=== PATIENT | female | born 2000 | race Caucasian/White ===

== ENCOUNTER 2018-01-11 14:40 | Emergency (ER) | payer OTHER ==
[~2018-01-11] VITALS: Ht 162.6 cm; Wt 95.7 kg
[2018-01-11 15:21] LABS: BASOPHIL % 0.2 % (0-2); PLATELET COUNT 204 x10^3mcL (130-400)
[2018-01-11 15:25] LABS: CALCIUM 8.4 mg/dL (8.5-10.1); CARBON DIOXIDE 22.5 mmol/L (21-32); CHLORIDE SERUM 103 mmol/L (98-107); CREATININE SERUM 0.6 mg/dL (0.6-1.0); GFR1 > 60 mL/min; GLUCOSE SERUM 132 mg/dL (74-106); POTASSIUM SERUM 3.6 mmol/L (3.5-5.1); SODIUM SERUM 135 mmol/L (136-145)
[2018-01-11 15:26] LABS: RED CELL DISTRIBUTION WIDTH 14.8 % (11.5-14.5)
[2018-01-11 15:30] LABS: ALKALINE PHOSPHATASE 108 U/L (46-116); ALT/SGPT 19 U/L (14-59); AST/SGOT 18 U/L (15-37); BILIRUBIN TOTAL 0.2 mg/dL (0.20-1.00); TOTAL PROTEIN, SERUM 6.9 g/dL (6.4-8.2)
[2018-01-11 15:31] LABS: ALBUMIN 2.3 g/dL (3.4-5.0)
[2018-01-11 16:42] LABS: FREE T4 1.09 ng/dL (0.76-1.46); FREE THYROXINE INDEX 3.8 ug/dL (1.4-4.5); T4(THYROXINE) 14.8 ug/dL (4.7-13.3)
[2018-01-11 16:43] LABS: T3 TOTAL 1.83 ng/mL
[2018-01-11 16:45] LABS: microscopic required? YES; urine erythrocyte NEGATIVE (NEGATIVE)
[2018-01-11 16:54] LABS: AMPHETAMINE QUAL UR NONE DETECTED (See below)
[2018-01-11 21:35] VITALS: BP 121/63
== END 2018-01-11 21:35 | disposition short-term general hospital (02) ==
LOC: ED 14:40
PROVIDERS: Emergency Medicine
DX: O26.893 Other specified pregnancy related conditions, third trimester (principal); R07.89 Other chest pain; R06.00 Dyspnea, unspecified; R00.0 Tachycardia, unspecified; Z3A.29 29 weeks gestation of pregnancy
CPT/HCPCS: 36415; 84439; J7030; Q0092; Q9967

== ENCOUNTER 2018-06-01 16:06 | Emergency (ER) | payer OTHER ==
[~2018-06-01] VITALS: Ht 162.6 cm; Wt 87.1 kg
[2018-06-01 16:19] VITALS: Ht 162.6 cm; Wt 87.1 kg
[2018-06-01 17:41] LABS: BASOPHIL % 0.2 % (0-2); PLATELET COUNT 236 x10^3mcL (130-400); RED CELL DISTRIBUTION WIDTH 14.1 % (11.5-14.5)
[2018-06-01 17:42] LABS: CALCIUM 8.8 mg/dL (8.5-10.1); CARBON DIOXIDE 27.7 mmol/L (21-32); CHLORIDE SERUM 108 mmol/L (98-107); CREATININE SERUM 0.6 mg/dL (0.6-1.0); GFR1 > 60 mL/min; GLUCOSE SERUM 102 mg/dL (74-106); SODIUM SERUM 143 mmol/L (136-145)
[2018-06-01 17:47] LABS: ALKALINE PHOSPHATASE 75 U/L (46-116); ALT/SGPT 89 U/L (14-59); AST/SGOT 86 U/L (15-37); BILIRUBIN TOTAL 0.3 mg/dL (0.20-1.00); LIPASE 108 IU/L (73-393)
[2018-06-01 17:49] LABS: ALBUMIN 3.3 g/dL (3.4-5.0)
[2018-06-01 19:43] VITALS: BP 126/69
== END 2018-06-01 19:43 | disposition home or self-care (01) ==
LOC: ED 16:06
PROVIDERS: Emergency Medicine
DX: R10.13 Epigastric pain (principal); R10.11 Right upper quadrant pain; R06.02 Shortness of breath
CPT/HCPCS: J1885; Q0092

== ENCOUNTER 2019-03-10 10:51 | Emergency (ER) | payer OTHER ==
[~2019-03-10] VITALS: Ht 152.4 cm; Wt 85.7 kg
[2019-03-10 10:55] VITALS: BP 155/71; Ht 152.4 cm; Wt 85.7 kg
== END 2019-03-10 12:13 | disposition home or self-care (01) ==
LOC: ED 10:51
DX: L08.82 Omphalitis not of newborn (principal)